=== PATIENT | female | born 1995 | race African-American/Black ===

== ENCOUNTER 2018-09-28 04:57 | Inpatient (IN) | payer SELFPAY ==
[2018-09-28] MEDS ORDERED: MINERAL OIL PO PRN (05:35)
[2018-09-28] MEDS ORDERED: BRETHINE IVP PRN (05:35)
[2018-09-28] MEDS ORDERED: XYLOCAINE 2% INFILTRATI ONE (05:35)
[2018-09-28] MEDS ORDERED: BRETHINE SUB-Q PRN (05:35)
[2018-09-28] MEDS ORDERED: STADOL IV PRN (05:35)
[2018-09-28] MEDS ORDERED: LACTATED RINGERS 1,000 ML ONE ×2 (05:40→19:41)
[2018-09-28] MEDS: LACTATED RINGERS 1,000 ML IV SCH ×4 (05:45→15:55)
[2018-09-28] MEDS ORDERED: PITOCin/NS 20 UNIT/1000ML DRIP 20 UNITS/1,000 ML BAG IV SCH ×3 (06:00→21:00)
[2018-09-28 06:35] LABS: Hematocrit 38.9 % (30.3-42.9); Hemoglobin 12.9 gm/dl (10.1-14.3); Mean Corpuscular HGB Conc 33 % (30-34); Mean Corpuscular Volume 86 fl (79-97); Platelet Count 256 K/mm3 (140-440); Red Blood Count 4.51 M/mm3 (3.65-5.03); Red Cell Distribution Width 25.5 % (13.2-15.2)
[2018-09-28] MEDS ORDERED: LACTATED RINGERS 1,000 ML IV SCH ×2 (10:00→20:00)
[2018-09-28] MEDS ORDERED: PITOCin/NS 30 UNIT/500ML 30 UNITS/500 ML BAG IV SCH (10:00)
[2018-09-28] MEDS: PITOCin/NS 30 UNIT/500ML 30 UNITS/500 ML BAG IV SCH ×4 (10:30→14:32)
--- NOTE | 2018-09-28 10:33 | History and Physical Report ---
History of Present Illness Date of examination: 09/28/18 Date of admission: 09/28/18 06:34 Chief complaint: My water broke History of present illness: 21 Fe MARY 10/06/2018, 38w6d, presents with SROM 09/28/18 at 03:50am. Pt has known Anemia taking FeS04. SHe had early care with [facility]. 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 denies: smoking, alcohol abuse, prescription drug abuse, IV drug use - Obstetrical History Expected Date of Delivery: 10/06/18 Actual Gestation: 38 Week(s) 6 Day(s) : 1 Para: 0 Hx # Term Pregnancies: 0 Number of Pregnancies: 0 Spontaneous Abortions: 0 Induced : 0 Number of Living Children: 0 Medications and Allergies Allergies Allergy/AdvReac Type Severity Reaction Status Date / Time No Known Allergies Allergy Verified 09/28/18 05:09 Home Medications Medication Instructions Recorded Confirmed Last Taken Type Cholecalciferol (Vitamin D3) 09/28/18 09/27/18 History [Vitamin D3] Ferrous Sulfate [Iron] 1 tab PO BID 09/28/18 09/28/18 09/27/18 History Active Meds: Active Medications Butorphanol Tartrate (Stadol) 2 mg IV Q2H PRN PRN Reason: Pain , Severe (7-10) Ephedrine Sulfate (Ephedrine Sulfate) 10 mg IV Q2M PRN PRN Reason: Hypotension Lactated Ringer's (Lactated Ringers) 1,000 mls @ 125 mls/hr IV DIRECT CUONG Last Admin: 09/28/18 07:52 Dose: 125 mls/hr Documented by: Oxytocin/Sodium Chloride (Pitocin/Ns 20 Unit/1000ml Drip) 20 units in 1,000 mls @ 125 mls/hr IV DIRECT CUONG Lactated Ringer's (Lactated Ringers) 1,000 mls @ 125 mls/hr IV DIRECT CUONG Oxytocin/Sodium Chloride (Pitocin/Ns 30 Unit/500ml) 30 units in 500 mls @ 2 mls/hr IV TITR CUONG; Protocol Oxytocin/Sodium Chloride (Pitocin/Ns 30 Unit/500ml) 30 units in 500 mls @ 2 mls/hr IV TITR CUONG; Protocol Mineral Oil (Mineral Oil) 30 ml PO QHS PRN PRN Reason: Constipation Terbutaline Sulfate (Brethine) 0.25 mg SUB-Q ONCE PRN PRN Reason: Hyperstimulation/Hypertonicity Terbutaline Sulfate (Brethine) 0.25 mg IVP ONCE PRN PRN Reason: Hyperstimulation/Hypertonicity Review of Systems All systems: negative - Vital Signs Vital signs: Vital Signs Temp Pulse Resp BP 98.4 F 104 H 18 122/75 09/28/18 05:10 09/28/18 05:10 09/28/18 05:10 09/28/18 05:10 Temp Pulse Resp BP Pulse Ox 98.6 F 72 22 138/79 98 09/28/18 07:44 09/28/18 07:44 09/28/18 07:44 09/28/18 07:44 09/28/18 07:44 - Physical Exam Breasts: Positive: normal Cardiovascular: Regular rate, Normal S1, Normal S2, No murmurs Lungs: Positive: Clear to auscultation, Normal air movement Abdomen: Positive: normal appearance, soft, normal bowel sounds. Negative: distention Genitourinary (Female): Positive: normal external genitalia, normal perenium Vagina: Negative: normal moisture (Moderate amt clear fluid noted leaking from vagina) Uterus: Positive: enlarged (gravid) Anus/Rectum: Positive: normal perianal skin Extremities: Positive: normal Deep Tendon Reflex Grade: Normal +2 - Obstetrical FHR: auscultation normal, category 1 Uterine Contraction Monitor Mode: External Cervical Dilatation: 0 Cervical Effacement Percentage: 75 station: -3 Uterine Contraction Frequency (min): irreg Uterine Contraction Pattern: Irregular Uterine Tone Measurement Phase: Resting Uterine Contraction Intensity: Mild Results Result Diagrams: 09/28/18 05:45 Abnormal lab results 09/28/18 Range/Units 05:45 RDW 25.5 H (13.2-15.2) % All other labs normal. Assessment and Plan A: IUP @ 38w6d SROM 09/28/18 @ 03:50 am; lg amt clear GBS unknown Category 1 tracing Asymptomatic Anemia; FeS04 P: Admit to L&D Routine labor orders GBS prophylaxis Pitocin augmentation
--- NOTE | 2018-09-28 14:07 | Ultrasound Report ---
ULTRASOUND OB LIMITED History: Evaluate presentation Technique: Transabdominal ultrasound with Doppler interrogation. Gestation: Single Position: Cephalic Heart Rate: 141 BPM
--- NOTE | 2018-09-28 18:43 | Event Note ---
Date: 09/28/18 Assumed care of patient. Patient states she had SROM with clear fluid this AM and is receiving Pitocin for augmentation of labor. FHR tracing showed FHR baseline 125 with minimal variability and early and late decelerations. Positioned patient in left lateral position. IV fluid bolus given. Pitocin turned off. Oxygen applied per face mask at 10 LPM. FHR has responded well to interventions. Now FHR baseline 125 with moderate variability and accelerations.
[2018-09-28] MEDS ORDERED: BICITRA PO ONE (19:12)
[2018-09-28] MEDS ORDERED: PEPCID IV ONE (19:12)
[2018-09-28] MEDS ORDERED: REGLAN IV ONE (19:12)
--- NOTE | 2018-09-28 19:17 | Event Note ---
Date: 09/28/18 Prolonged FHR deceleration noted with gradual return to baseline. Notified Dr. Whitley of prolonged FHR deceleration and earlier period of late FHR decelerations which had previously resolved. Dr. Whitley states to get patient ready for section. Informed patient and of recommendation for section due to nonreassuring heart rate tracing. C/S orders put in.
[2018-09-28] MEDS ORDERED: ASTRAMORPH PF 10MG/10ML ONE (19:37)
[2018-09-28] MEDS ORDERED: NEO SYNEPHRINE/NS Syringe(OR USE) IV ONE (19:37)
[2018-09-28] MEDS ORDERED: ZOFRAN ONE (19:37)
[2018-09-28] MEDS ORDERED: ANCEF/STERILE WATER 2 GM/20 ML 2 GM/20 ML SYRINGE IV NR (20:00)
[2018-09-28] MEDS ORDERED: WATER FOR IRRIG STERILE IR ONE (20:03)
[2018-09-28] MEDS ORDERED: NACL 0.9% IR ONE (20:03)
[2018-09-28] MEDS ORDERED: TORADOL ONE (20:19)
--- NOTE | 2018-09-28 20:36 | Operative Report ---
Operative Report Operative Report: Date of procedure: 09/28/2018 Pre-operative diagnosis: 1. Intrauterine at 38-6/7 weeks 2. Non-r eassuring surveillance Post-operative diagnosis: Same Procedure name(s): Primary low transverse section Surgeon: Juancho Whitley MD Cookie Mixer Helper: None Anesthesia: Spinal anesthesia by Dr. Lassiter EBL: 200 mL's Findings: A 2510 g female infant Apgars 8 at 1 minute 9 at 5 minutes. Clear amniotic fluid. Normal uterus. Normal tubes and ovaries bilaterally. Procedure: After the patient was prepped and draped in usual sterile fashion, and after satisfactory level of epidural anesthesia was obtained, the skin knife was used to make a transverse skin incision. The incision was excised down to layer of the fascia, which was nicked in the midline and extended laterally using the Bovie cautery. The rectus muscles were dissected off the rectus fascia both superiorly and inferiorly. The rectus bellies in the midline, and the peritoneum was entered under direct visualization. The peritoneal incision was extended superiorly and inferiorly. A bladder flap was created and the bladder blade was then placed. The uterus was scored in a curvilinear linear fashion, entered in the midline revealing clear amniotic fluid. The 's head was delivered onto the surgical field, and the oropharynx and nasopharynx were bulb suctioned. The rest of the 's body was delivered, cord was doubly clamped and cut and the was handed to the waiting respiratory team. Cord blood was then obtained. The placenta was manually removed from the uterus, and the uterus removed from its normal anatomical position. After gentle uterine lavage, the incision was inspected and found to be without extensions. It was then closed in 2 layers using 0 Vicryl suture in a running interlocking fashion, the second layer imbricating the first. After good hemostasis was achieved, copious amounts or irrigation was performed, and the gutters were suctioned free of blood and blood clots. Tisseel sealant was sprayed across the uterine incision. The uterus was then returned to its normal anatomical position, and after excellent hemostasis assured, the peritoneum was re-approximated using 3-0 Vicryl suture in a running interlocking fashion, and then the rectus muscles were re-approximated using 3-0 Vicryl suture in a [id number] configuration. The fascia was then re- approximated using 0 Vicryl suture in running interlocking fashion. The subcutaneous layer was made hemostatic using Bovie cautery, the Tisseel sealant was sprayed across the fascial incision and the skin edges re-approximated using 4-0 Vicryl suture in a sub-cuticular fashion. Patient tolerated the procedure well was transported to recovery in stable condition.
[2018-09-28] MEDS ORDERED: SENOKOT PO PRN (20:37)
[2018-09-28] MEDS ORDERED: ZOFRAN IV PRN ×2 (20:37→20:43)
[2018-09-28] MEDS ORDERED: MILK OF MAGNESIA PO PRN (20:37)
[2018-09-28] MEDS ORDERED: NORCO 5/325 PO PRN (20:37)
[2018-09-28] MEDS ORDERED: PHENERGAN PR PRN ×2 (20:37→20:43)
[2018-09-28] MEDS ORDERED: NARCAN 0.4 MG/1 ML IV PRN ×2 (20:37→20:43)
[2018-09-28] MEDS ORDERED: LANSINOH TP PRN (20:37)
[2018-09-28] MEDS ORDERED: TORADOL IV PRN (20:37)
[2018-09-28] MEDS ORDERED: TYLENOL PO PRN (20:37)
[2018-09-28] MEDS ORDERED: TUCKS PAD TP PRN (20:37)
[2018-09-28] MEDS ORDERED: MYLICON PO PRN (20:37)
[2018-09-28] MEDS ORDERED: PHENERGAN PO PRN (20:43)
[2018-09-28] MEDS ORDERED: DILAUDID IV PRN (20:43)
--- NOTE | 2018-09-28 20:45 | Anesthesia Day of Surgery ---
Anesthesia Day of Surgery - Day of Surgery Patient Examined: Yes Patient H&P Reviewed: Yes Patient is NPO: Yes Beta Blockers: No Cardiac Clearance: No Pulmonary Clearance: No Enrique's Test: N/A
--- NOTE | 2018-09-28 20:45 | Anesthesia Consultation ---
Anesthesia Consult and Med Hx - Airway Anesthetic Teeth Evaluation: Good ROM Head & Neck: Adequate Mental/Hyoid Distance: Adequate Mallampati Class: Class I Intubation Access Assessment: Good - Pulmonary Exam CTA: Yes - Cardiac Exam Cardiac Exam: RRR - Pre-Operative Health Status ASA Pre-Surgery Classification: ASA2 Proposed Anesthetic Plan: Spinal - Pulmonary Hx Smoking: No Hx Asthma: No COPD: No Hx Pneumonia: No - Cardiovascular System Hx Hypertension: No - Central Nervous System Hx Seizures: No Hx Psychiatric Problems: No - Endocrine Hx Renal Disease: No Hx End Stage Renal Disease: No Hx Hypothyroidism: No Hx Hyperthyroidism: No - Hematic Hx Anemia: Yes (iron bid) Hx Sickle Cell Disease: No - Other Systems Hx Alcohol Use: No
--- NOTE | 2018-09-28 20:46 | Post Anesthesia Evaluation ---
- Post Anesthesia Evaluation Patient Participated: Yes Airway Patent: Yes Stable Respiratory Function: Yes Nausea/Vomiting: No Temp > 96.8F: Yes Pain Manageable: Yes Adequeate Hydration: Yes Anesthesia Complications: No Block Receding Appropriately: Yes Patient on Ventilator: No
[2018-09-28] MEDS ORDERED: SODIUM CHLORIDE FLUSH SYRINGE 10 ML IV SCH ×2 (21:00)
[2018-09-29] MEDS: D5LR 1,000 ML IV SCH ×2 (01:15→12:11)
[2018-09-29] MEDS: ANCEF/NS 1 GM/50 ML 1 GM/50 ML BAG IV SCH ×2 (05:51→12:10)
[2018-09-29] MEDS ORDERED: BOOSTRIX IM ONE (06:00)
[2018-09-29 09:31] LABS: Hematocrit 34.5 % (30.3-42.9); Hemoglobin 11.5 gm/dl (10.1-14.3)
[2018-09-29] MEDS: FEOSOL PO SCH (10:52)
[2018-09-29] MEDS: PRENATAL VITAMIN PO SCH (10:52)
--- NOTE | 2018-09-29 11:16 | Progress Note ---
Assessment and Plan A: /postop day 1 S/P primary low transverse section. P: Encouraged ambulation. Subjective - Subjective Date of service: 09/29/18 Principal diagnosis: /postop day 1 S/P low transverse section Interval history: /postop day 1 S/P primary low transverse section. Doing well. Patient reports small amount of lochia. Magallanes catheter has been removed and patient is voiding without difficulty. Tolerating a regular diet without nausea or vomiting. Passing gas. Ambulating well. Patient reports: appetite normal, voiding normally, pain well controlled, flatus, ambulating normally, no dizzy ambulation, no nauseated [place]: doing well Objective - Vital Signs Latest vital signs: Vital Signs Temp Pulse Resp BP BP Pulse Ox 09/29/18 08:02 98.8 F 82 21 107/49 97 09/29/18 05:20 98.6 F 90 16 100/50 96 09/28/18 22:42 99.0 F 100 H 16 113/60 99 09/28/18 21:41 49 L 12 102/60 100 09/28/18 21:26 85 14 110/50 100 09/28/18 21:11 91 H 14 96/50 100 09/28/18 20:56 90 15 107/55 100 09/28/18 20:51 89 16 102/56 100 09/28/18 20:46 101 H 15 101/53 100 09/28/18 20:41 98.2 F 99 H 19 107/44 100 09/28/18 19:12 101 H 100 09/28/18 19:05 97.8 F 105/58 09/28/18 14:35 80 105/58 09/28/18 14:34 97.4 F L 80 105/58 09/28/18 11:25 99.5 F 86 15 127/68 09/28/18 11:24 86 127/68 Intake and Output 09/28/18 09/29/18 09/29/18 23:59 07:59 15:59 Intake Total 1200 240 Output Total 900 1100 1700 Balance 300 -1100 -1460 Intake: IV 1200 Oral 240 Output: Urine 900 1100 1700 Indwelling Catheter 1100 1700 Other: Total, Intake Amount 240 Total, Output Amount 400 1700 Estimated Blood Loss 200 - Exam Cardiovascular: Present: Regular rate, Normal S1, Normal S2 Lungs: Present: Clear to auscultation Abdomen: Present: normal appearance, soft, normal bowel sounds. Absent: distention, tenderness, guarding, rigidity Uterus: Present: normal, firm, fundal height below umbilicus. Absent: bogginess, tenderness Extremities: Present: normal. Absent: tenderness, edema Incision: Present: normal, dry, intact, dressed
[2018-09-29] MEDS: PERCOCET 5/325 PO PRN (12:09)
[2018-09-29] MEDS ORDERED: BENADRYL PO PRN (12:45)
[2018-09-29] MEDS ORDERED: M-M-R II VACCINE SUB-Q ONE (20:38)
[2018-09-30] MEDS: IBUPROFEN PO PRN ×2 (06:53→17:53)
[2018-09-30] MEDS: PERCOCET 5/325 PO PRN (06:53)
[2018-09-30] MEDS: PRENATAL VITAMIN PO SCH (10:32)
[2018-09-30] MEDS: FEOSOL PO SCH (10:32)
--- NOTE | 2018-09-30 11:25 | Progress Note ---
Assessment and Plan A: /postop day 2 S/P primary low transverse section. P: Continue current orders. Anticipate discharge tomorrow. Subjective - Subjective Date of service: 09/30/18 Principal diagnosis: /postop day 2 S/P low transverse section Interval history: /postop day 2 S/P primary low transverse section. Doing well. Patient reports scant amount of lochia. Patient is voiding without difficulty and ambulating well. Passing gas. Tolerating a regular diet without nausea or vomiting. Patient denies headache, chest pain, cough, shortness of breath, abdominal pain, leg pain, heavy vaginal bleeding, or any other problems. Patient reports: appetite normal, voiding normally, pain well controlled, ambulating normally, no dizzy ambulation, no nauseated [place]: doing well Objective - Vital Signs Latest vital signs: Vital Signs Temp Pulse Resp BP Pulse Ox 09/30/18 08:27 97.6 F 69 18 105/60 99 09/30/18 00:25 98.7 F 95 H 16 108/65 97 09/29/18 21:25 98.2 F 110 H 18 113/76 100 09/29/18 16:34 98.9 F 100 H 20 109/64 99 09/29/18 11:24 98.0 F 98 H 20 110/72 97 Intake and Output 09/29/18 09/30/18 09/30/18 23:59 07:59 15:59 Intake Total 480 120 Output Total 1200 Balance -720 120 Intake: Oral 480 Intake, Free Water 120 Output: Urine 1200 Void 1200 Other: Total, Intake Amount 480 Total, Output Amount 800 # Voids Void 2 - Exam Cardiovascular: Present: Regular rate, Normal S1, Normal S2, No murmurs Lungs: Present: Clear to auscultation Abdomen: Present: normal appearance, soft, normal bowel sounds. Absent: distention, tenderness, guarding, rigidity Uterus: Present: normal, firm, fundal height below umbilicus. Absent: bogginess, tenderness Extremities: Present: normal. Absent: tenderness, edema Incision: Present: normal, dry, intact
[2018-10-01] MEDS: IBUPROFEN PO PRN ×2 (04:27→11:25)
[2018-10-01] MEDS: PERCOCET 5/325 PO PRN (04:29)
--- NOTE | 2018-10-01 07:09 | Progress Note ---
Assessment and Plan A: /postop day 3 S/P primary low transverse section. P: Discharge patient home today. Discussed with patient discharge instructions and warning signs. Activity restrictions and care of incision discussed with patient. Advised patient to avoid intercourse, lifting and heavy housework, driving, stair climbing, and tub baths (may take showers). Advised patient to call [facility] and schedule a follow up appointment for 1 week for an incision check. Patient voiced understanding of all instructions. Rx have been left on chart for patient by MD. Subjective - Subjective Date of service: 10/01/18 Principal diagnosis: /postop day 3 S/P low transverse section Interval history: /postop day 3 S/P primary low transverse section. Doing well. Patient reports scant amount of lochia. Patient is voiding without difficulty and ambulating well. Passing gas. Tolerating a regular diet without nausea or vomiting. Patient denies headache, chest pain, cough, shortness of breath, dizziness, abdominal pain, leg pain, heavy vaginal bleeding, or any other problems. Patient reports: appetite normal, voiding normally, pain well controlled, flatus, ambulating normally, no dizzy ambulation, no nauseated [place]: doing well Objective - Vital Signs Latest vital signs: Vital Signs Temp Pulse Resp BP Pulse Ox 10/01/18 00:21 98.0 F 73 18 104/60 98 09/30/18 16:57 98.9 F 96 H 18 118/76 98 09/30/18 08:27 97.6 F 69 18 105/60 99 Intake and Output 09/30/18 09/30/18 10/01/18 15:59 23:59 07:59 Intake Total 960 480 Balance 960 480 Intake: Oral 360 480 Intake, Free Water 600 Other: Total, Intake Amount 360 480 # Voids Void 1 1 - Exam Cardiovascular: Present: Regular rate, Normal S1, Normal S2, No murmurs Lungs: Present: Clear to auscultation Abdomen: Present: normal appearance, soft, normal bowel sounds. Absent: distention, tenderness, guarding, rigidity Uterus: Present: normal, firm, fundal height below umbilicus. Absent: bogginess, tenderness Extremities: Present: normal. Absent: tenderness, edema Incision: Present: normal, dry, intact
--- NOTE | 2018-10-01 07:11 | Discharge Summary ---
Providers - Providers Date of Admission: 09/28/18 06:34 Date of discharge: 10/01/18 Attending physician: HELADIO HOFFMANN MD None Primary care physician: HELADIO HOFFMANN MD Hospitalization Reason for admission: rupture of membranes Delivery: Procedure: primary low transverse Incision: normal, dry, intact Other procedures: none complications: none Discharge diagnosis: IUP at term delivered [place] baby: female Pertinent studies: Labs Hospital course: Normal hospital course Condition at discharge: Good Disposition: SC-01 TO HOME OR SELFCARE - Discharge Diagnoses (1) Term delivered Status: Acute Plan - Discharge Medications Prescriptions: Ferrous Sulfate [Feosol 325 MG tab] 325 mg PO BID #60 tablet HYDROcodone/APAP 5-325 [[place] 5/325] 1 each PO Q6HR PRN #30 tablet PRN Reason: Pain Ibuprofen [Motrin] 800 mg PO Q8HR PRN #30 tablet PRN Reason: Moder Pain Unrelieved By [place] Pnv No.95/Ferrous Fum/Folic AC [Prenavite Tablet] 1 each PO DAILY #30 tablet - Provider Discharge Summary Activity: routine, no sex for 6 weeks, no heavy lifting 4 weeks, no strenuous exercise Diet: routine Instructions: routine Additional instructions: Call your doctor immediately for: * Fever > 100.5 * Heavy vaginal bleeding ( >1 pad per hour) * Severe persistent headache * Shortness of breath * Reddened, hot, painful area to leg or breast * Drainage or odor from incision. * Keep incision clean and dry at all times and follow doctor's instructions regarding bathing/showering - Follow up plan Follow up: HELADIO HOFFMANN MD [Primary Care Provider] - 7 Days
[2018-10-01] MEDS: FEOSOL PO SCH (10:24)
[2018-10-01] MEDS: PRENATAL VITAMIN PO SCH (10:24)
[2018-10-01 12:45] VITALS: BP 113/78
== END 2018-10-01 12:30 | disposition home or self-care (01) | DRG 788 ==
LOC: TRG 04:57 → LD 06:34 → TRG 06:34 → APU 21:05 → OB 22:08
PROVIDERS: ADMIT Obstetrics & Gynecology; ATTEND Obstetrics & Gynecology
PROC: 10D00Z1 Extraction of Products of Conception, Low, Open Approach (ICD-10-PCS; principal; 2018-09-28)
PROC: 3E0234Z Introduction of Serum, Toxoid and Vaccine into Muscle, Percutaneous Approach (ICD-10-PCS; 2018-09-29)
DX: O76 Abnormality in fetal heart rate and rhythm complicating labor and delivery (principal); O99.02 Anemia complicating childbirth; D64.9 Anemia, unspecified; Z3A.38 38 weeks gestation of pregnancy; Z37.0 Single live birth; Z23 Encounter for immunization
CPT/HCPCS: 36415; 76815; 85014; 85018; 85027; 86592; 86850; 86900; 86901; G0378; C9250; J0595; J0690; J1885; J2274; J2370; J2405; J2590; J2765; J3105; J7120; J7121

== ENCOUNTER 2021-11-13 20:22 | Inpatient (IN) | payer OTHER ==
[2021-11-13] MEDS ORDERED: OXYTOCIN 10 UNIT/1 ML INJ IM PRN (21:33)
[2021-11-13] MEDS ORDERED: BUTORPHANOL 2 MG/1 ML INJ IV PRN (21:33)
[2021-11-13] MEDS ORDERED: LOPERAMIDE 2 MG CAP PO PRN (21:33)
[2021-11-13] MEDS ORDERED: ACETAMINOPHEN 325 MG TAB PO PRN (21:33)
[2021-11-13] MEDS ORDERED: METHYLERGONOVINE MALEATE 0.2 MG/ML VIAL IM PRN (21:33)
[2021-11-13] MEDS ORDERED: ePHEDrine SULFATE 50 MG/1 ML INJ IV PRN (21:33)
[2021-11-13] MEDS ORDERED: LIDOCAINE (2%) 20 MG/1 ML VIAL 20 ML MDV INFILTRATI ONE (21:33)
[2021-11-13] MEDS ORDERED: miSOPROStol 200 MCG TAB PR PRN (21:33)
[2021-11-13] MEDS ORDERED: fentaNYL 100 MCG/2 ML INJ IV PRN (21:33)
[2021-11-13] MEDS ORDERED: CARBOPROST TROMETHAMINE 250 MCG/1 ML INJ IM PRN (21:33)
[2021-11-13] MEDS ORDERED: TERBUTALINE 1 MG/1 ML INJ SUB-Q PRN (21:33)
[2021-11-13] MEDS ORDERED: MINERAL OIL 30 ML ORAL LIQD PO PRN (21:33)
[2021-11-13] MEDS ORDERED: OXYTOCIN DRIP 30 UNITS/500 ML BAG IV SCH ×2 (22:00)
[2021-11-13 22:21] LABS: Hematocrit 32.6 % (30.3-42.9); Hemoglobin 11.1 gm/dl (10.1-14.3); Mean Corpuscular HGB Conc 34 % (30-34); Mean Corpuscular Volume 82 fl (79-97); Platelet Count 292 K/mm3 (140-440); Red Blood Count 3.97 M/mm3 (3.65-5.03); Red Cell Distribution Width 13.8 % (13.2-15.2)
[2021-11-13] MEDS ORDERED: AMPICILLIN/NS 2 GM/100 ML 2 GM/100 ML BAG IV ONE (22:33)
--- NOTE | 2021-11-13 23:03 | History and Physical Report ---
History of Present Illness Date of examination: 11/13/21 Date of admission: 11/13/21 21:33 Chief complaint: SROM Previous c/sectionx1, desires TOLAC History of present illness: 25-year-old -0-0-1 at 39-1/7 weeks presents with spontaneous rupture of membranes. Admits to good movement and is without vaginal bleeding. Admits to regular contractions Obstetrical history significant for previous section x1-documented low- transverse in [facility]. Patient desires TOLAC-informed consent was obtained. The normal care lifecycle: records in chart Past History Past Surgical History: section (Primary low transverse section documented in [facility] 2019) Family/Genetic History: none Social history: no significant social history - Obstetrical History Expected Date of Delivery: 11/19/21 Actual Gestation: 39 Week(s) 1 Day(s) : 2 Para: 1 Medications and Allergies Allergies Allergy/AdvReac Type Severity Reaction Status Date / Time No Known Allergies Allergy Verified 09/28/18 05:09 Home Medications Medication Instructions Recorded Confirmed Last Taken Type Cholecalciferol (Vitamin D3) 1 tab PO 1XW 09/28/18 09/29/18 09/27/18 History [Vitamin D3] Ferrous Sulfate [Feosol 325 MG tab] 325 mg PO BID #60 tablet 09/28/18 Unknown Rx Ferrous Sulfate [Iron] 1 tab PO BID 09/28/18 09/28/18 09/27/18 History HYDROcodone/APAP 5-325 [[place] 1 each PO Q6HR PRN #30 tablet 09/28/18 Unknown Rx 5/325] Ibuprofen [Motrin] 800 mg PO Q8HR PRN #30 tablet 09/28/18 Unknown Rx Pnv No.95/Ferrous Fum/Folic AC 1 each PO DAILY #30 tablet 09/28/18 Unknown Rx [Prenavite Tablet] Active Meds: Active Medications Acetaminophen (Acetaminophen 325 Mg Tab) 650 mg PO Q4H PRN PRN Reason: Pain, Mild (1-3) Butorphanol Tartrate (Butorphanol 2 Mg/1 Ml Inj) 1 mg IV Q2H PRN PRN Reason: Pain, Moderate(4-6) LABOR PAIN Carboprost Tromethamine (Carboprost Tromethamine 250 Mcg/1 Ml Inj) 250 mcg IM ONCE PRN PRN Reason: Uterine Bleeding Ephedrine Sulfate (Ephedrine Sulfate 50 Mg/1 Ml Inj) 10 mg IV Q2M PRN PRN Reason: Hypotension Fentanyl (Fentanyl 100 Mcg/2 Ml Inj) 100 mcg IV Q2H PRN PRN Reason: Pain,Severe (7-10) LABOR PAIN Oxytocin/Sodium Chloride (Pitocin/Ns 30 Unit/500ml) 30 units in 500 mls @ 2 mls/hr IV TITR CUONG; Protocol Lactated Ringer's (Lactated Ringers) 1,000 mls @ 125 mls/hr IV DIRECT CUONG Oxytocin/Sodium Chloride (Pitocin/Ns 30 Unit/500ml) 30 units in 500 mls @ 40 mls/hr IV TITR CUONG; Protocol Ampicillin Sodium (Ampicillin/Ns 2 Gm/100 Ml) 2 gm in 100 mls @ 100 mls/hr IV ONCE ONE; Protocol Stop: 11/13/21 23:32 Loperamide HCl (Loperamide 2 Mg Cap) 2 mg PO ONCE PRN PRN Reason: give with Hemabate Methylergonovine Maleate (Methylergonovine Maleate 0.2 Mg/Ml Vial) 0.2 mg IM ONCE PRN PRN Reason: Uterine Bleeding Mineral Oil (Mineral Oil 30 Ml Oral Liqd) 30 ml PO QHS PRN PRN Reason: Constipation Misoprostol (Misoprostol 200 Mcg Tab) 800 mcg MD ONCE PRN PRN Reason: Uterine Bleeding Oxytocin (Oxytocin 10 Unit/1 Ml Inj) 10 unit IM ONCE PRN PRN Reason: Uterine Bleeding Terbutaline Sulfate (Terbutaline 1 Mg/1 Ml Inj) 0.25 mg SUB-Q ONCE PRN PRN Reason: Hyperstimulation/Hypertonicity Review of Systems All systems: negative (Leaking fluid) - Vital Signs Vital signs: Vital Signs Pulse Pulse Ox 110 H 100 11/13/21 20:45 11/13/21 20:45 Temp Pulse Resp BP Pulse Ox 98.2 F 103 H 14 127/70 100 11/13/21 21:01 11/13/21 23:01 11/13/21 21:01 11/13/21 21:06 11/13/21 23:01 - Physical Exam Breasts: Positive: deferred Cardiovascular: Regular rate Lungs: Positive: Clear to auscultation Abdomen: Positive: normal appearance, soft, normal bowel sounds Genitourinary (Female): Positive: normal external genitalia, normal perenium Vagina: Positive: normal moisture Uterus: Positive: enlarged (Gravid) Adnexa: both: normal Anus/Rectum: Positive: normal perianal skin Extremities: Positive: normal Deep Tendon Reflex Grade: Normal +2 - Obstetrical FHR: category 1 Results Result Diagrams: 11/13/21 21:40 Abnormal lab results 11/13/21 Range/Units 21:40 WBC 11.7 H (4.5-11.0) K/mm3 All other labs normal. Assessment and Plan Admission Informed consent GBS coverage PRN CFM Epidural Low dose oxytocin Gordon Torres MD
[2021-11-14] MEDS ORDERED: diphenhydrAMINE 50 MG/ML VIAL IV PRN (00:27)
[2021-11-14] MEDS ORDERED: NALOXONE 2 MG/2 ML INJ IV PRN (00:27)
[2021-11-14] MEDS ORDERED: ePHEDrine SULFATE 50 MG/1 ML INJ IV PRN (00:27)
[2021-11-14] MEDS ORDERED: LACTATED RINGERS 250 ML IV SOLN IV ONE (00:27)
[2021-11-14] MEDS ORDERED: NalbUPHINE 10 MG/1 ML INJ IV PRN (00:27)
[2021-11-14] MEDS ORDERED: ONDANSETRON 4 MG/2 ML INJ IV PRN (00:27)
--- NOTE | 2021-11-14 00:54 | Anesthesia Consultation ---
Anesthesia Consult and Med Hx Date of service: 11/14/21 - Airway Anesthetic Teeth Evaluation: Good ROM Head & Neck: Adequate Mental/Hyoid Distance: Adequate Mallampati Class: Class II Intubation Access Assessment: Probably Good - Pulmonary Exam CTA: Yes - Cardiac Exam Cardiac Exam: RRR - Pre-Operative Health Status ASA Pre-Surgery Classification: ASA2 Proposed Anesthetic Plan: Epidural - Pulmonary Hx Smoking: No Hx Asthma: No COPD: No Hx Pneumonia: No Hx Sleep Apnea: No - Cardiovascular System Hx Hypertension: No Hx Heart Attack/AMI: No Hx Angina: No - Central Nervous System Hx Seizures: No Hx Psychiatric Problems: No - Gastrointestinal Hx Gastroesophageal Reflux Disease: No - Endocrine Hx Renal Disease: No Hx End Stage Renal Disease: No Hx Liver Disease: No Hx Insulin Dependent Diabetes: No Hx Non-Insulin Dependent Diabetes: No Hx Hypothyroidism: No Hx Hyperthyroidism: No - Hematic Hx Anemia: No Hx Sickle Cell Disease: No - Other Systems Hx Alcohol Use: No - Additional Comments Anesthesia Medical History Comments: previous c/s x1
--- NOTE | 2021-11-14 00:56 | Progress Note ---
Labor Epidural - Labor Epidural Start Time: 00:45 Stop Time: 00:55 Performed by:: JESSICA BEAVER Procedure: Patient is requesting epidural for labor and pain. H&P, labs were reviewed. Patient IDed, all questions and concerns were answered, and consent was signed. Timeout was performed at bedside. Patient in sitting position. Sterile prep and drape was performed. 3ml of 1% lidocaine skin wheal at L[3]- L [4]. 17- gauge Tuohy epidural needle was advanced to loss of resistance with air technique 5.5cm. Negative CSF negative blood. Epidural catheter advanced to [11] centimeters. [negative] Aspiration [negative] test dose. Sterile dressing applied. Patient tolerated procedure.
[2021-11-14] MEDS: LACTATED RINGERS 1,000 ML IV SCH ×2 (01:12→08:42)
[2021-11-14] MEDS: fentaNYL-BUPIV 2 MCG/ML-0.125% 200 MCG/100 ML BAG EPIDURAL SCH ×2 (01:22→08:42)
--- NOTE | 2021-11-14 08:57 | Progress Note ---
Subjective - Subjective Date of service: 11/14/21 Interval history: TOLAC On oxytocin Epidural in place FHT Category 1 [place] Hook: irregular cervix 1/90%/-3 CFM Maternal/ well being reassuring overall. Gordon Torres MD Objective - Vital Signs Vital Signs: Vital Signs - 12hr 11/13/21 11/13/21 11/13/21 20:54 20:55 20:56 Temperature Pulse Rate 104 H 107 H 109 H Respiratory Rate Blood Pressure 120/71 123/70 Blood Pressure [Right] O2 Sat by Pulse 100 Oximetry O2 Sat by Pulse Oximetry [ Bilateral Throughout] 11/13/21 11/13/21 11/13/21 20:58 21:00 21:01 Temperature 98.2 F Pulse Rate 101 H 97 H 102 H Respiratory 14 Rate Blood Pressure 102/70 Blood Pressure 127/70 [Right] O2 Sat by Pulse 100 100 Oximetry O2 Sat by Pulse Oximetry [ Bilateral Throughout] 11/13/21 11/13/21 11/13/21 21:02 21:04 21:05 Temperature Pulse Rate 112 H 100 H 103 H Respiratory Rate Blood Pressure 125/79 130/69 Blood Pressure [Right] O2 Sat by Pulse 99 Oximetry O2 Sat by Pulse Oximetry [ Bilateral Throughout] 11/13/21 11/13/21 11/13/21 21:06 21:10 21:15 Temperature Pulse Rate 98 H 103 H 100 H Respiratory Rate Blood Pressure 127/70 Blood Pressure [Right] O2 Sat by Pulse 100 100 Oximetry O2 Sat by Pulse Oximetry [ Bilateral Throughout] 11/13/21 11/13/21 11/13/21 21:18 21:20 21:25 Temperature Pulse Rate 101 H 99 H 98 H Respiratory Rate Blood Pressure Blood Pressure [Right] O2 Sat by Pulse 92 100 100 Oximetry O2 Sat by Pulse Oximetry [ Bilateral Throughout] 11/13/21 11/13/21 11/13/21 21:30 21:35 21:40 Temperature Pulse Rate 98 H 97 H 99 H Respiratory Rate Blood Pressure Blood Pressure [Right] O2 Sat by Pulse 100 100 100 Oximetry O2 Sat by Pulse Oximetry [ Bilateral Throughout] 11/13/21 11/13/21 11/13/21 21:45 21:50 21:55 Temperature Pulse Rate 105 H 110 H 97 H Respiratory Rate Blood Pressure Blood Pressure [Right] O2 Sat by Pulse 100 100 100 Oximetry O2 Sat by Pulse Oximetry [ Bilateral Throughout] 11/13/21 11/13/21 11/13/21 22:00 22:16 22:21 Temperature Pulse Rate 98 H 100 H 99 H Respiratory Rate Blood Pressure Blood Pressure [Right] O2 Sat by Pulse 100 100 100 Oximetry O2 Sat by Pulse Oximetry [ Bilateral Throughout] 11/13/21 11/13/21 11/13/21 22:26 22:31 22:36 Temperature Pulse Rate 94 H 91 H 94 H Respiratory Rate Blood Pressure Blood Pressure [Right] O2 Sat by Pulse 100 100 100 Oximetry O2 Sat by Pulse Oximetry [ Bilateral Throughout] 11/13/21 11/13/21 11/13/21 22:41 22:46 22:51 Temperature Pulse Rate 106 H 95 H 88 Respiratory Rate Blood Pressure Blood Pressure [Right] O2 Sat by Pulse 98 100 100 Oximetry O2 Sat by Pulse Oximetry [ Bilateral Throughout] 11/13/21 11/13/21 11/13/21 22:56 23:01 23:06 Temperature Pulse Rate 93 H 103 H 86 Respiratory Rate Blood Pressure Blood Pressure [Right] O2 Sat by Pulse 100 100 100 Oximetry O2 Sat by Pulse Oximetry [ Bilateral Throughout] 11/13/21 11/13/21 11/13/21 23:09 23:11 23:16 Temperature Pulse Rate 92 H 93 H Respiratory Rate Blood Pressure 112/70 Blood Pressure [Right] O2 Sat by Pulse 100 100 Oximetry O2 Sat by Pulse 100 Oximetry [ Bilateral Throughout] 11/13/21 11/14/21 11/14/21 23:24 00:37 00:42 Temperature Pulse Rate 89 99 H 98 H Respiratory Rate Blood Pressure 125/83 Blood Pressure [Right] O2 Sat by Pulse 86 100 Oximetry O2 Sat by Pulse Oximetry [ Bilateral Throughout] 11/14/21 11/14/21 11/14/21 00:47 00:48 00:52 Temperature Pulse Rate 109 H 113 H 92 H Respiratory Rate Blood Pressure 121/76 Blood Pressure [Right] O2 Sat by Pulse 100 100 Oximetry O2 Sat by Pulse Oximetry [ Bilateral Throughout] 11/14/21 11/14/21 11/14/21 00:53 00:57 00:58 Temperature Pulse Rate 84 86 96 H Respiratory Rate Blood Pressure 121/68 124/69 Blood Pressure [Right] O2 Sat by Pulse 100 Oximetry O2 Sat by Pulse Oximetry [ Bilateral Throughout] 11/14/21 11/14/21 11/14/21 01:02 01:03 01:07 Temperature Pulse Rate 89 93 H 85 Respiratory Rate Blood Pressure 124/65 Blood Pressure [Right] O2 Sat by Pulse 100 100 Oximetry O2 Sat by Pulse Oximetry [ Bilateral Throughout] 11/14/21 11/14/21 11/14/21 01:08 01:12 01:13 Temperature Pulse Rate 91 H 84 90 Respiratory Rate Blood Pressure 118/62 113/58 Blood Pressure [Right] O2 Sat by Pulse 100 Oximetry O2 Sat by Pulse Oximetry [ Bilateral Throughout] 11/14/21 11/14/21 11/14/21 01:17 01:19 01:22 Temperature Pulse Rate 89 84 87 Respiratory Rate Blood Pressure 102/55 Blood Pressure [Right] O2 Sat by Pulse 100 100 Oximetry O2 Sat by Pulse Oximetry [ Bilateral Throughout] 11/14/21 11/14/21 11/14/21 01:23 01:27 01:28 Temperature Pulse Rate 89 86 80 Respiratory Rate Blood Pressure 104/59 105/58 Blood Pressure [Right] O2 Sat by Pulse 100 Oximetry O2 Sat by Pulse Oximetry [ Bilateral Throughout] 11/14/21 11/14/21 11/14/21 01:32 01:33 01:37 Temperature Pulse Rate 85 88 95 H Respiratory Rate Blood Pressure 105/59 Blood Pressure [Right] O2 Sat by Pulse 99 100 Oximetry O2 Sat by Pulse Oximetry [ Bilateral Throughout] 11/14/21 11/14/21 11/14/21 01:38 01:42 01:47 Temperature Pulse Rate 84 89 82 Respiratory Rate Blood Pressure 115/63 Blood Pressure [Right] O2 Sat by Pulse 100 99 Oximetry O2 Sat by Pulse Oximetry [ Bilateral Throughout] 11/14/21 11/14/21 11/14/21 01:52 01:57 02:02 Temperature Pulse Rate 84 93 H 87 Respiratory Rate Blood Pressure Blood Pressure [Right] O2 Sat by Pulse 99 100 100 Oximetry O2 Sat by Pulse Oximetry [ Bilateral Throughout] 11/14/21 11/14/21 11/14/21 02:07 02:12 02:17 Temperature Pulse Rate 79 99 H 86 Respiratory Rate Blood Pressure Blood Pressure [Right] O2 Sat by Pulse 99 100 100 Oximetry O2 Sat by Pulse Oximetry [ Bilateral Throughout] 11/14/21 11/14/21 11/14/21 02:22 02:27 02:32 Temperature Pulse Rate 92 H 92 H 91 H Respiratory Rate Blood Pressure Blood Pressure [Right] O2 Sat by Pulse 99 99 100 Oximetry O2 Sat by Pulse Oximetry [ Bilateral Throughout] 11/14/21 11/14/21 11/14/21 02:37 02:39 02:42 Temperature Pulse Rate 96 H 89 97 H Respiratory Rate Blood Pressure 107/70 Blood Pressure [Right] O2 Sat by Pulse 100 99 Oximetry O2 Sat by Pulse Oximetry [ Bilateral Throughout] 11/14/21 11/14/21 11/14/21 02:47 02:52 02:57 Temperature Pulse Rate 92 H 89 98 H Respiratory Rate Blood Pressure Blood Pressure [Right] O2 Sat by Pulse 99 99 99 Oximetry O2 Sat by Pulse Oximetry [ Bilateral Throughout] 11/14/21 11/14/21 11/14/21 03:02 03:07 03:12 Temperature Pulse Rate 108 H 100 H 94 H Respiratory Rate Blood Pressure Blood Pressure [Right] O2 Sat by Pulse 100 100 100 Oximetry O2 Sat by Pulse Oximetry [ Bilateral Throughout] 11/14/21 11/14/21 11/14/21 03:19 03:24 03:29 Temperature Pulse Rate 98 H 81 83 Respiratory Rate Blood Pressure Blood Pressure [Right] O2 Sat by Pulse 100 99 98 Oximetry O2 Sat by Pulse Oximetry [ Bilateral Throughout] 11/14/21 11/14/21 11/14/21 03:34 03:39 03:44 Temperature Pulse Rate 85 93 H 92 H Respiratory Rate Blood Pressure Blood Pressure [Right] O2 Sat by Pulse 98 98 98 Oximetry O2 Sat by Pulse Oximetry [ Bilateral Throughout] 11/14/21 11/14/21 11/14/21 03:49 03:54 03:59 Temperature Pulse Rate 88 90 93 H Respiratory Rate Blood Pressure Blood Pressure [Right] O2 Sat by Pulse 98 98 99 Oximetry O2 Sat by Pulse Oximetry [ Bilateral Throughout] 11/14/21 11/14/21 11/14/21 04:01 04:04 04:09 Temperature Pulse Rate 86 89 102 H Respiratory Rate Blood Pressure 116/67 Blood Pressure [Right] O2 Sat by Pulse 99 98 Oximetry O2 Sat by Pulse Oximetry [ Bilateral Throughout] 11/14/21 11/14/21 11/14/21 04:14 04:19 04:24 Temperature Pulse Rate 95 H 75 74 Respiratory Rate Blood Pressure Blood Pressure [Right] O2 Sat by Pulse 98 98 98 Oximetry O2 Sat by Pulse Oximetry [ Bilateral Throughout] 11/14/21 11/14/21 11/14/21 04:29 04:34 04:39 Temperature Pulse Rate 88 91 H 73 Respiratory Rate Blood Pressure Blood Pressure [Right] O2 Sat by Pulse 97 97 98 Oximetry O2 Sat by Pulse Oximetry [ Bilateral Throughout] 11/14/21 11/14/21 11/14/21 04:41 04:44 04:49 Temperature Pulse Rate 68 83 75 Respiratory Rate Blood Pressure 89/51 Blood Pressure [Right] O2 Sat by Pulse 97 98 Oximetry O2 Sat by Pulse Oximetry [ Bilateral Throughout] 11/14/21 11/14/21 11/14/21 04:54 04:59 05:04 Temperature Pulse Rate 80 102 H 83 Respiratory Rate Blood Pressure Blood Pressure [Right] O2 Sat by Pulse 98 98 98 Oximetry O2 Sat by Pulse Oximetry [ Bilateral Throughout] 11/14/21 11/14/21 11/14/21 05:09 05:14 05:19 Temperature Pulse Rate 79 91 H 114 H Respiratory Rate Blood Pressure Blood Pressure [Right] O2 Sat by Pulse 99 98 98 Oximetry O2 Sat by Pulse Oximetry [ Bilateral Throughout] 11/14/21 11/14/21 11/14/21 05:24 05:29 05:34 Temperature Pulse Rate 85 78 80 Respiratory Rate Blood Pressure Blood Pressure [Right] O2 Sat by Pulse 98 98 97 Oximetry O2 Sat by Pulse Oximetry [ Bilateral Throughout] 11/14/21 11/14/21 11/14/21 05:39 05:41 05:44 Temperature Pulse Rate 74 89 78 Respiratory Rate Blood Pressure 92/50 Blood Pressure [Right] O2 Sat by Pulse 98 98 Oximetry O2 Sat by Pulse Oximetry [ Bilateral Throughout] 11/14/21 11/14/21 11/14/21 05:49 05:54 05:59 Temperature Pulse Rate 86 87 90 Respiratory Rate Blood Pressure Blood Pressure [Right] O2 Sat by Pulse 97 98 97 Oximetry O2 Sat by Pulse Oximetry [ Bilateral Throughout] 11/14/21 11/14/21 11/14/21 06:04 06:09 06:14 Temperature Pulse Rate 103 H 88 90 Respiratory Rate Blood Pressure Blood Pressure [Right] O2 Sat by Pulse 97 98 99 Oximetry O2 Sat by Pulse Oximetry [ Bilateral Throughout] 11/14/21 11/14/21 11/14/21 06:19 06:24 06:28 Temperature Pulse Rate 84 87 81 Respiratory Rate Blood Pressure 108/67 Blood Pressure [Right] O2 Sat by Pulse 99 99 Oximetry O2 Sat by Pulse Oximetry [ Bilateral Throughout] 11/14/21 11/14/21 11/14/21 06:29 06:34 06:39 Temperature Pulse Rate 98 H 79 78 Respiratory Rate Blood Pressure 107/65 Blood Pressure [Right] O2 Sat by Pulse 99 99 99 Oximetry O2 Sat by Pulse Oximetry [ Bilateral Throughout] 11/14/21 11/14/21 11/14/21 06:44 06:49 06:54 Temperature Pulse Rate 88 84 77 Respiratory Rate Blood Pressure Blood Pressure [Right] O2 Sat by Pulse 99 99 99 Oximetry O2 Sat by Pulse Oximetry [ Bilateral Throughout] 11/14/21 11/14/21 11/14/21 06:59 07:04 07:09 Temperature Pulse Rate 75 93 H 78 Respiratory Rate Blood Pressure Blood Pressure [Right] O2 Sat by Pulse 99 99 99 Oximetry O2 Sat by Pulse Oximetry [ Bilateral Throughout] 11/14/21 11/14/21 11/14/21 07:14 07:19 07:24 Temperature Pulse Rate 85 82 75 Respiratory Rate Blood Pressure Blood Pressure [Right] O2 Sat by Pulse 100 99 98 Oximetry O2 Sat by Pulse Oximetry [ Bilateral Throughout] 11/14/21 11/14/21 11/14/21 07:29 07:34 07:39 Temperature Pulse Rate 72 74 83 Respiratory Rate Blood Pressure Blood Pressure [Right] O2 Sat by Pulse 98 99 98 Oximetry O2 Sat by Pulse Oximetry [ Bilateral Throughout] 11/14/21 11/14/21 11/14/21 07:40 07:41 07:42 Temperature 97.5 F L Pulse Rate 77 83 96 H Respiratory 16 Rate Blood Pressure 115/63 112/69 Blood Pressure 112/69 [Right] O2 Sat by Pulse 99 Oximetry O2 Sat by Pulse Oximetry [ Bilateral Throughout] 11/14/21 11/14/21 11/14/21 07:44 07:49 07:53 Temperature Pulse Rate 79 83 Respiratory Rate Blood Pressure Blood Pressure [Right] O2 Sat by Pulse 99 100 Oximetry O2 Sat by Pulse 100 Oximetry [ Bilateral Throughout] 11/14/21 11/14/21 11/14/21 07:54 07:55 07:59 Temperature 98.7 F Pulse Rate 93 H 80 89 Respiratory 16 Rate Blood Pressure Blood Pressure 112/69 [Right] O2 Sat by Pulse 99 99 99 Oximetry O2 Sat by Pulse Oximetry [ Bilateral Throughout] 11/14/21 11/14/21 11/14/21 08:04 08:09 08:14 Temperature Pulse Rate 95 H 79 85 Respiratory Rate Blood Pressure Blood Pressure [Right] O2 Sat by Pulse 98 100 99 Oximetry O2 Sat by Pulse Oximetry [ Bilateral Throughout] 11/14/21 11/14/21 11/14/21 08:19 08:24 08:29 Temperature Pulse Rate 99 H 85 109 H Respiratory Rate Blood Pressure Blood Pressure [Right] O2 Sat by Pulse 99 99 98 Oximetry O2 Sat by Pulse Oximetry [ Bilateral Throughout] 11/14/21 11/14/21 11/14/21 08:34 08:39 08:44 Temperature Pulse Rate 87 85 83 Respiratory Rate Blood Pressure 126/68 Blood Pressure [Right] O2 Sat by Pulse 100 100 99 Oximetry O2 Sat by Pulse Oximetry [ Bilateral Throughout] 11/14/21 08:49 Temperature Pulse Rate 87 Respiratory Rate Blood Pressure Blood Pressure [Right] O2 Sat by Pulse 99 Oximetry O2 Sat by Pulse Oximetry [ Bilateral Throughout] - Labs Labs: Abnormal Labs 11/13/21 21:40 WBC 11.7 H Laboratory Results - last 24 hr 11/13/21 11/13/21 11/13/21 21:40 21:40 21:40 WBC 11.7 H RBC 3.97 Hgb 11.1 Hct 32.6 MCV 82 MCH 28 MCHC 34 RDW 13.8 Plt Count 292 Membranes Rupture TNR Syphilis IgG/IgM Ab Nonreactive Blood Type O POSITIVE Antibody Screen Negative
--- NOTE | 2021-11-14 09:02 | Progress Note ---
Subjective - Subjective Date of service: 11/14/21 Interval history: TOLAC 5/100%/-2 by my exam redose epidural CFM Maternal/ well being reassuring overall. Gordon Torres MD Objective - Vital Signs Vital Signs: Vital Signs - 12hr 11/13/21 11/13/21 11/13/21 21:02 21:04 21:05 Temperature Pulse Rate 112 H 100 H 103 H Respiratory Rate Blood Pressure 125/79 130/69 Blood Pressure [Right] O2 Sat by Pulse 99 Oximetry O2 Sat by Pulse Oximetry [ Bilateral Throughout] 11/13/21 11/13/21 11/13/21 21:06 21:10 21:15 Temperature Pulse Rate 98 H 103 H 100 H Respiratory Rate Blood Pressure 127/70 Blood Pressure [Right] O2 Sat by Pulse 100 100 Oximetry O2 Sat by Pulse Oximetry [ Bilateral Throughout] 11/13/21 11/13/21 11/13/21 21:18 21:20 21:25 Temperature Pulse Rate 101 H 99 H 98 H Respiratory Rate Blood Pressure Blood Pressure [Right] O2 Sat by Pulse 92 100 100 Oximetry O2 Sat by Pulse Oximetry [ Bilateral Throughout] 11/13/21 11/13/21 11/13/21 21:30 21:35 21:40 Temperature Pulse Rate 98 H 97 H 99 H Respiratory Rate Blood Pressure Blood Pressure [Right] O2 Sat by Pulse 100 100 100 Oximetry O2 Sat by Pulse Oximetry [ Bilateral Throughout] 11/13/21 11/13/21 11/13/21 21:45 21:50 21:55 Temperature Pulse Rate 105 H 110 H 97 H Respiratory Rate Blood Pressure Blood Pressure [Right] O2 Sat by Pulse 100 100 100 Oximetry O2 Sat by Pulse Oximetry [ Bilateral Throughout] 11/13/21 11/13/21 11/13/21 22:00 22:16 22:21 Temperature Pulse Rate 98 H 100 H 99 H Respiratory Rate Blood Pressure Blood Pressure [Right] O2 Sat by Pulse 100 100 100 Oximetry O2 Sat by Pulse Oximetry [ Bilateral Throughout] 11/13/21 11/13/21 11/13/21 22:26 22:31 22:36 Temperature Pulse Rate 94 H 91 H 94 H Respiratory Rate Blood Pressure Blood Pressure [Right] O2 Sat by Pulse 100 100 100 Oximetry O2 Sat by Pulse Oximetry [ Bilateral Throughout] 11/13/21 11/13/21 11/13/21 22:41 22:46 22:51 Temperature Pulse Rate 106 H 95 H 88 Respiratory Rate Blood Pressure Blood Pressure [Right] O2 Sat by Pulse 98 100 100 Oximetry O2 Sat by Pulse Oximetry [ Bilateral Throughout] 11/13/21 11/13/21 11/13/21 22:56 23:01 23:06 Temperature Pulse Rate 93 H 103 H 86 Respiratory Rate Blood Pressure Blood Pressure [Right] O2 Sat by Pulse 100 100 100 Oximetry O2 Sat by Pulse Oximetry [ Bilateral Throughout] 11/13/21 11/13/21 11/13/21 23:09 23:11 23:16 Temperature Pulse Rate 92 H 93 H Respiratory Rate Blood Pressure 112/70 Blood Pressure [Right] O2 Sat by Pulse 100 100 Oximetry O2 Sat by Pulse 100 Oximetry [ Bilateral Throughout] 11/13/21 11/14/21 11/14/21 23:24 00:37 00:42 Temperature Pulse Rate 89 99 H 98 H Respiratory Rate Blood Pressure 125/83 Blood Pressure [Right] O2 Sat by Pulse 86 100 Oximetry O2 Sat by Pulse Oximetry [ Bilateral Throughout] 11/14/21 11/14/21 11/14/21 00:47 00:48 00:52 Temperature Pulse Rate 109 H 113 H 92 H Respiratory Rate Blood Pressure 121/76 Blood Pressure [Right] O2 Sat by Pulse 100 100 Oximetry O2 Sat by Pulse Oximetry [ Bilateral Throughout] 11/14/21 11/14/21 11/14/21 00:53 00:57 00:58 Temperature Pulse Rate 84 86 96 H Respiratory Rate Blood Pressure 121/68 124/69 Blood Pressure [Right] O2 Sat by Pulse 100 Oximetry O2 Sat by Pulse Oximetry [ Bilateral Throughout] 11/14/21 11/14/21 11/14/21 01:02 01:03 01:07 Temperature Pulse Rate 89 93 H 85 Respiratory Rate Blood Pressure 124/65 Blood Pressure [Right] O2 Sat by Pulse 100 100 Oximetry O2 Sat by Pulse Oximetry [ Bilateral Throughout] 11/14/21 11/14/21 11/14/21 01:08 01:12 01:13 Temperature Pulse Rate 91 H 84 90 Respiratory Rate Blood Pressure 118/62 113/58 Blood Pressure [Right] O2 Sat by Pulse 100 Oximetry O2 Sat by Pulse Oximetry [ Bilateral Throughout] 11/14/21 11/14/21 11/14/21 01:17 01:19 01:22 Temperature Pulse Rate 89 84 87 Respiratory Rate Blood Pressure 102/55 Blood Pressure [Right] O2 Sat by Pulse 100 100 Oximetry O2 Sat by Pulse Oximetry [ Bilateral Throughout] 11/14/21 11/14/21 11/14/21 01:23 01:27 01:28 Temperature Pulse Rate 89 86 80 Respiratory Rate Blood Pressure 104/59 105/58 Blood Pressure [Right] O2 Sat by Pulse 100 Oximetry O2 Sat by Pulse Oximetry [ Bilateral Throughout] 11/14/21 11/14/21 11/14/21 01:32 01:33 01:37 Temperature Pulse Rate 85 88 95 H Respiratory Rate Blood Pressure 105/59 Blood Pressure [Right] O2 Sat by Pulse 99 100 Oximetry O2 Sat by Pulse Oximetry [ Bilateral Throughout] 11/14/21 11/14/21 11/14/21 01:38 01:42 01:47 Temperature Pulse Rate 84 89 82 Respiratory Rate Blood Pressure 115/63 Blood Pressure [Right] O2 Sat by Pulse 100 99 Oximetry O2 Sat by Pulse Oximetry [ Bilateral Throughout] 11/14/21 11/14/21 11/14/21 01:52 01:57 02:02 Temperature Pulse Rate 84 93 H 87 Respiratory Rate Blood Pressure Blood Pressure [Right] O2 Sat by Pulse 99 100 100 Oximetry O2 Sat by Pulse Oximetry [ Bilateral Throughout] 11/14/21 11/14/21 11/14/21 02:07 02:12 02:17 Temperature Pulse Rate 79 99 H 86 Respiratory Rate Blood Pressure Blood Pressure [Right] O2 Sat by Pulse 99 100 100 Oximetry O2 Sat by Pulse Oximetry [ Bilateral Throughout] 11/14/21 11/14/21 11/14/21 02:22 02:27 02:32 Temperature Pulse Rate 92 H 92 H 91 H Respiratory Rate Blood Pressure Blood Pressure [Right] O2 Sat by Pulse 99 99 100 Oximetry O2 Sat by Pulse Oximetry [ Bilateral Throughout] 11/14/21 11/14/21 11/14/21 02:37 02:39 02:42 Temperature Pulse Rate 96 H 89 97 H Respiratory Rate Blood Pressure 107/70 Blood Pressure [Right] O2 Sat by Pulse 100 99 Oximetry O2 Sat by Pulse Oximetry [ Bilateral Throughout] 11/14/21 11/14/21 11/14/21 02:47 02:52 02:57 Temperature Pulse Rate 92 H 89 98 H Respiratory Rate Blood Pressure Blood Pressure [Right] O2 Sat by Pulse 99 99 99 Oximetry O2 Sat by Pulse Oximetry [ Bilateral Throughout] 11/14/21 11/14/21 11/14/21 03:02 03:07 03:12 Temperature Pulse Rate 108 H 100 H 94 H Respiratory Rate Blood Pressure Blood Pressure [Right] O2 Sat by Pulse 100 100 100 Oximetry O2 Sat by Pulse Oximetry [ Bilateral Throughout] 11/14/21 11/14/21 11/14/21 03:19 03:24 03:29 Temperature Pulse Rate 98 H 81 83 Respiratory Rate Blood Pressure Blood Pressure [Right] O2 Sat by Pulse 100 99 98 Oximetry O2 Sat by Pulse Oximetry [ Bilateral Throughout] 11/14/21 11/14/21 11/14/21 03:34 03:39 03:44 Temperature Pulse Rate 85 93 H 92 H Respiratory Rate Blood Pressure Blood Pressure [Right] O2 Sat by Pulse 98 98 98 Oximetry O2 Sat by Pulse Oximetry [ Bilateral Throughout] 11/14/21 11/14/21 11/14/21 03:49 03:54 03:59 Temperature Pulse Rate 88 90 93 H Respiratory Rate Blood Pressure Blood Pressure [Right] O2 Sat by Pulse 98 98 99 Oximetry O2 Sat by Pulse Oximetry [ Bilateral Throughout] 11/14/21 11/14/21 11/14/21 04:01 04:04 04:09 Temperature Pulse Rate 86 89 102 H Respiratory Rate Blood Pressure 116/67 Blood Pressure [Right] O2 Sat by Pulse 99 98 Oximetry O2 Sat by Pulse Oximetry [ Bilateral Throughout] 11/14/21 11/14/21 11/14/21 04:14 04:19 04:24 Temperature Pulse Rate 95 H 75 74 Respiratory Rate Blood Pressure Blood Pressure [Right] O2 Sat by Pulse 98 98 98 Oximetry O2 Sat by Pulse Oximetry [ Bilateral Throughout] 11/14/21 11/14/21 11/14/21 04:29 04:34 04:39 Temperature Pulse Rate 88 91 H 73 Respiratory Rate Blood Pressure Blood Pressure [Right] O2 Sat by Pulse 97 97 98 Oximetry O2 Sat by Pulse Oximetry [ Bilateral Throughout] 11/14/21 11/14/21 11/14/21 04:41 04:44 04:49 Temperature Pulse Rate 68 83 75 Respiratory Rate Blood Pressure 89/51 Blood Pressure [Right] O2 Sat by Pulse 97 98 Oximetry O2 Sat by Pulse Oximetry [ Bilateral Throughout] 11/14/21 11/14/21 11/14/21 04:54 04:59 05:04 Temperature Pulse Rate 80 102 H 83 Respiratory Rate Blood Pressure Blood Pressure [Right] O2 Sat by Pulse 98 98 98 Oximetry O2 Sat by Pulse Oximetry [ Bilateral Throughout] 11/14/21 11/14/21 11/14/21 05:09 05:14 05:19 Temperature Pulse Rate 79 91 H 114 H Respiratory Rate Blood Pressure Blood Pressure [Right] O2 Sat by Pulse 99 98 98 Oximetry O2 Sat by Pulse Oximetry [ Bilateral Throughout] 11/14/21 11/14/21 11/14/21 05:24 05:29 05:34 Temperature Pulse Rate 85 78 80 Respiratory Rate Blood Pressure Blood Pressure [Right] O2 Sat by Pulse 98 98 97 Oximetry O2 Sat by Pulse Oximetry [ Bilateral Throughout] 11/14/21 11/14/21 11/14/21 05:39 05:41 05:44 Temperature Pulse Rate 74 89 78 Respiratory Rate Blood Pressure 92/50 Blood Pressure [Right] O2 Sat by Pulse 98 98 Oximetry O2 Sat by Pulse Oximetry [ Bilateral Throughout] 11/14/21 11/14/21 11/14/21 05:49 05:54 05:59 Temperature Pulse Rate 86 87 90 Respiratory Rate Blood Pressure Blood Pressure [Right] O2 Sat by Pulse 97 98 97 Oximetry O2 Sat by Pulse Oximetry [ Bilateral Throughout] 11/14/21 11/14/21 11/14/21 06:04 06:09 06:14 Temperature Pulse Rate 103 H 88 90 Respiratory Rate Blood Pressure Blood Pressure [Right] O2 Sat by Pulse 97 98 99 Oximetry O2 Sat by Pulse Oximetry [ Bilateral Throughout] 11/14/21 11/14/21 11/14/21 06:19 06:24 06:28 Temperature Pulse Rate 84 87 81 Respiratory Rate Blood Pressure 108/67 Blood Pressure [Right] O2 Sat by Pulse 99 99 Oximetry O2 Sat by Pulse Oximetry [ Bilateral Throughout] 11/14/21 11/14/21 11/14/21 06:29 06:34 06:39 Temperature Pulse Rate 98 H 79 78 Respiratory Rate Blood Pressure 107/65 Blood Pressure [Right] O2 Sat by Pulse 99 99 99 Oximetry O2 Sat by Pulse Oximetry [ Bilateral Throughout] 11/14/21 11/14/21 11/14/21 06:44 06:49 06:54 Temperature Pulse Rate 88 84 77 Respiratory Rate Blood Pressure Blood Pressure [Right] O2 Sat by Pulse 99 99 99 Oximetry O2 Sat by Pulse Oximetry [ Bilateral Throughout] 11/14/21 11/14/21 11/14/21 06:59 07:04 07:09 Temperature Pulse Rate 75 93 H 78 Respiratory Rate Blood Pressure Blood Pressure [Right] O2 Sat by Pulse 99 99 99 Oximetry O2 Sat by Pulse Oximetry [ Bilateral Throughout] 11/14/21 11/14/21 11/14/21 07:14 07:19 07:24 Temperature Pulse Rate 85 82 75 Respiratory Rate Blood Pressure Blood Pressure [Right] O2 Sat by Pulse 100 99 98 Oximetry O2 Sat by Pulse Oximetry [ Bilateral Throughout] 11/14/21 11/14/21 11/14/21 07:29 07:34 07:39 Temperature Pulse Rate 72 74 83 Respiratory Rate Blood Pressure Blood Pressure [Right] O2 Sat by Pulse 98 99 98 Oximetry O2 Sat by Pulse Oximetry [ Bilateral Throughout] 11/14/21 11/14/21 11/14/21 07:40 07:41 07:42 Temperature 97.5 F L Pulse Rate 77 83 96 H Respiratory 16 Rate Blood Pressure 115/63 112/69 Blood Pressure 112/69 [Right] O2 Sat by Pulse 99 Oximetry O2 Sat by Pulse Oximetry [ Bilateral Throughout] 11/14/21 11/14/21 11/14/21 07:44 07:49 07:53 Temperature Pulse Rate 79 83 Respiratory Rate Blood Pressure Blood Pressure [Right] O2 Sat by Pulse 99 100 Oximetry O2 Sat by Pulse 100 Oximetry [ Bilateral Throughout] 11/14/21 11/14/21 11/14/21 07:54 07:55 07:59 Temperature 98.7 F Pulse Rate 93 H 80 89 Respiratory 16 Rate Blood Pressure Blood Pressure 112/69 [Right] O2 Sat by Pulse 99 99 99 Oximetry O2 Sat by Pulse Oximetry [ Bilateral Throughout] 11/14/21 11/14/21 11/14/21 08:04 08:09 08:14 Temperature Pulse Rate 95 H 79 85 Respiratory Rate Blood Pressure Blood Pressure [Right] O2 Sat by Pulse 98 100 99 Oximetry O2 Sat by Pulse Oximetry [ Bilateral Throughout] 11/14/21 11/14/21 11/14/21 08:19 08:24 08:29 Temperature Pulse Rate 99 H 85 109 H Respiratory Rate Blood Pressure Blood Pressure [Right] O2 Sat by Pulse 99 99 98 Oximetry O2 Sat by Pulse Oximetry [ Bilateral Throughout] 11/14/21 11/14/21 11/14/21 08:34 08:39 08:44 Temperature Pulse Rate 87 85 83 Respiratory Rate Blood Pressure 126/68 Blood Pressure [Right] O2 Sat by Pulse 100 100 99 Oximetry O2 Sat by Pulse Oximetry [ Bilateral Throughout] 11/14/21 11/14/21 11/14/21 08:49 08:54 08:59 Temperature Pulse Rate 87 84 89 Respiratory Rate Blood Pressure Blood Pressure [Right] O2 Sat by Pulse 99 100 99 Oximetry O2 Sat by Pulse Oximetry [ Bilateral Throughout] - Labs Labs: Abnormal Labs 11/13/21 21:40 WBC 11.7 H Laboratory Results - last 24 hr 11/13/21 11/13/21 11/13/21 21:40 21:40 21:40 WBC 11.7 H RBC 3.97 Hgb 11.1 Hct 32.6 MCV 82 MCH 28 MCHC 34 RDW 13.8 Plt Count 292 Membranes Rupture TNR Syphilis IgG/IgM Ab Nonreactive Blood Type O POSITIVE Antibody Screen Negative
[2021-11-14] MEDS ORDERED: LIDOCAINE MPF (2%) 20 MG/1 ML VIAL 5 ML ONE ×2 (10:42→11:45)
[2021-11-14] MEDS ORDERED: MAGNESIUM HYDROXIDE (MOM) ORAL LIQD UDC PO PRN (12:31)
[2021-11-14] MEDS ORDERED: BENZOCAINE/MENTHOL 20/0.5% TOP SPRAY 56 GM TP PRN (12:31)
[2021-11-14] MEDS ORDERED: WITCH HAZEL/ GLYCERIN PAD TP PRN (12:31)
[2021-11-14] MEDS ORDERED: HYDROcodone/ACETAMINOPHEN 5-325 MG TAB PO PRN (12:31)
[2021-11-14] MEDS ORDERED: LANOLIN/ZINC/DIMETHICONE (LANSINOH) 7 GM TP PRN ×2 (12:31)
--- NOTE | 2021-11-14 12:31 | Procedure Note ---
OB Delivery Note - Delivery Date of Delivery: 11/14/21 Surgeon: TERRIE VARELA Estimated blood loss: other (800 cc) - Vaginal Delivery presentation: vertex Delivery position: OA Intrapartum events: other(please specify) () Delivery induction: none Delivery monitor: external FHT, external uterine Route of delivery: Delivery placenta: spontaneous Delivery cord: nuchal cord, 3 umbilical vessels Episiotomy: none Delivery laceration: 2nd degree, vaginal side wall Delivery repair: vicryl Anesthesia: local, epidural Delivery comments: Spontaneous vaginal delivery at 10:44 of liveborn female infant weighing 6 lb. 13 oz. over second degree perineal laceration with apgars of 9/9. Epidural anesthesia. was atraumatic. Nuchal cord and body cord, manually reduced. Baby placed skin to skin with mom immediately after delivery. Spontaneous cry and respirations. Baby suctioned with bulb syringe and dried with warm towels. 3 vessel cord double clamped and cut. Cord blood obtained. Spontaneous delivery of intact placenta and membranes at 10:47. Pitocin to IV fluids after delivery of placenta. Fundus firm and midline at 2 FB below umbilicus. EBL 800 cc (much of blood loss from laceration). Second degree perineal laceration and left vaginal wall laceration repaired with 2-0 and 3-0 vicryl in usual sterile fashion. Good hemostasis achieved with repair. No other lacerations noted. Vaginal sweep negative. Sponge count correct. Mother and baby stable in birthing room.
[2021-11-14 15:52] LABS: Hematocrit 29.9 % (30.3-42.9)
[2021-11-14] MEDS: IBUPROFEN 800 MG TAB PO SCH ×2 (18:27→19:33)
[2021-11-14] MEDS: DOCUSATE SODIUM 100 MG CAP PO SCH ×2 (19:51→23:53)
[2021-11-15] MEDS: IBUPROFEN 800 MG TAB PO SCH ×4 (00:08→21:27)
[2021-11-15 08:44] LABS: Hematocrit 28.1 % (30.3-42.9); Hemoglobin 8.9 gm/dl (10.1-14.3)
--- NOTE | 2021-11-15 09:11 | Progress Note ---
Assessment and Plan PPD#1 doing well 1. Routine care 2. Discharge pt home tomorrow per her request Subjective Date of service: 11/15/21 Principal diagnosis: PPD#1, successful Interval history: pt has no complaints but wants to go home tomorrow not today. pt is breast feeding. Vag bleed normal without clots, denies pelvic pain and voiding without difficulty. Objective - Constitutional Vitals: Vital Signs - 12hr 11/15/21 11/15/21 11/15/21 01:26 08:21 08:22 Temperature 98.1 F 98 F Pulse Rate 84 78 Respiratory 20 18 Rate Blood Pressure 102/59 95/54 O2 Sat by Pulse 98 98 95 Oximetry General appearance: Present: no acute distress - Neck Neck: normal ROM - Respiratory Respiratory effort: normal - Cardiovascular Rhythm: regular Extremities: No edema - Gastrointestinal General gastrointestinal: Present: soft, non-tender - Genitourinary Female genitourinary: other (fundus firm, non-tender 2cm below umbilicus, lochia small) - Integumentary Integumentary: warm, dry - Neurologic Neurologic: moves all extremities - Psychiatric Psychiatric: cooperative - Labs CBC & Chem 7: 11/15/21 08:17 Labs: Abnormal lab results 11/14/21 11/15/21 Range/Units 15:34 08:17 Hgb 10.0 L 8.9 L (10.1-14.3) gm/dl Hct 29.9 L 28.1 L (30.3-42.9) % Medications & Allergies - Medications Allergies/Adverse Reactions: Allergies No Known Allergies Allergy (Verified 09/28/18 05:09) Home Medications: Home Medications Medication Instructions Recorded Confirmed Last Taken Type Cholecalciferol (Vitamin D3) 1 tab PO 1XW 09/28/18 11/14/21 09/27/18 History [Vitamin D3] Ferrous Sulfate [Feosol 325 MG tab] 325 mg PO BID #60 tablet 09/28/18 11/14/21 Unknown Rx Ferrous Sulfate [Iron] 1 tab PO BID 09/28/18 11/14/21 09/27/18 History HYDROcodone/APAP 5-325 [[place] 1 each PO Q6HR PRN #30 tablet 09/28/18 11/14/21 Unknown Rx 5/325] Ibuprofen [Motrin] 800 mg PO Q8HR PRN #30 tablet 09/28/18 11/14/21 Unknown Rx Pnv No.95/Ferrous Fum/Folic AC 1 each PO DAILY #30 tablet 09/28/18 11/14/21 Unknown Rx [Prenavite Tablet] Active Medications: Generic Name Dose Route Start Last Admin Trade Name Freq PRN Reason Stop Dose Admin Hydrocodone Bitart/Acetaminophen 2 each 11/14/21 12:31 Hydrocodone/Acetaminophen 5-325 Mg Tab PO Q6H PRN Pain, Moderate (4-6) Benzocaine/Menthol 1 spray 11/14/21 12:31 11/14/21 18:34 Benzocaine/Menthol 20/0.5% [place] 56 Gm TP 1 spray PRN PRN Administration Episiotomy Pain Docusate Sodium 100 mg 11/14/21 13:00 11/14/21 23:53 Docusate Sodium 100 Mg Cap PO 100 mg BID CUONG Administration Ferrous Sulfate 325 mg 11/15/21 10:00 Ferrous Sulfate 325 Mg Tab PO QDAY CUONG Ibuprofen 800 mg 11/14/21 13:00 11/15/21 05:27 Ibuprofen 800 Mg Tab PO 800 mg Q6H CUONG Administration Magnesium Hydroxide 30 ml 11/14/21 12:31 Magnesium Hydroxide (Mom) Oral Liqd Udc PO HS PRN Constipation Multi-Ingredient Ointment 1 applic 11/14/21 12:31 11/14/21 18:27 Lanolin/Zinc/Dimethicone (Lansinoh) 7 Gm TP 1 applic PRN PRN Administration Sore Nipples [place]/Glycerin 1 each 11/14/21 12:31 11/14/21 18:34 [place]/ Glycerin Pad TP 1 each PRN PRN Administration Hemorrhoid/cleansing/soothing
[2021-11-15] MEDS ORDERED: FERROUS SULFATE 325 MG TAB PO SCH (10:00)
[2021-11-15] MEDS: DOCUSATE SODIUM 100 MG CAP PO SCH ×2 (11:28→21:27)
[2021-11-16] MEDS: IBUPROFEN 800 MG TAB PO SCH (05:05)
--- NOTE | 2021-11-16 09:20 | Progress Note ---
Assessment and Plan PPD#2 doing well 1. Discharge home and follow up in her clinic in 6wks. Subjective Date of service: 11/16/21 Principal diagnosis: PPD#2, successful Interval history: pt has no complaints and desires to go home. pt is breast feeding, vag bleed scant and pt denies dysuria or pelvic pain. Objective - Constitutional Vitals: Vital Signs - 12hr 11/15/21 11/15/21 11/16/21 21:27 23:52 05:05 Temperature 98.4 F Pulse Rate 81 Respiratory 18 20 18 Rate Blood Pressure 102/60 O2 Sat by Pulse 100 Oximetry General appearance: Present: no acute distress - Neck Neck: normal ROM - Respiratory Respiratory effort: normal - Breasts Breasts: deferred - Cardiovascular Rhythm: regular Extremities: No edema - Gastrointestinal General gastrointestinal: Present: soft, non-tender - Genitourinary Female genitourinary: other (Fundus firm, non-tender and 2cm below the u mbilicus, lochia scant) - Integumentary Integumentary: warm, dry - Neurologic Neurologic: moves all extremities - Psychiatric Psychiatric: cooperative - Labs CBC & Chem 7: 11/15/21 08:17 Medications & Allergies - Medications Allergies/Adverse Reactions: Allergies No Known Allergies Allergy (Verified 09/28/18 05:09) Home Medications: Home Medications Medication Instructions Recorded Confirmed Last Taken Type Cholecalciferol (Vitamin D3) 1 tab PO 1XW 09/28/18 11/14/21 09/27/18 History [Vitamin D3] Ferrous Sulfate [Feosol 325 MG tab] 325 mg PO BID #60 tablet 09/28/18 11/14/21 Unknown Rx Ferrous Sulfate [Iron] 1 tab PO BID 09/28/18 11/14/21 09/27/18 History HYDROcodone/APAP 5-325 [[place] 1 each PO Q6HR PRN #30 tablet 09/28/18 11/14/21 Unknown Rx 5/325] Ibuprofen [Motrin] 800 mg PO Q8HR PRN #30 tablet 09/28/18 11/14/21 Unknown Rx Pnv No.95/Ferrous Fum/Folic AC 1 each PO DAILY #30 tablet 09/28/18 11/14/21 Unknown Rx [Prenavite Tablet] Active Medications: Generic Name Dose Route Start Last Admin Trade Name Freq PRN Reason Stop Dose Admin Hydrocodone Bitart/Acetaminophen 2 each 11/14/21 12:31 11/15/21 15:33 Hydrocodone/Acetaminophen 5-325 Mg Tab PO 1 each Q6H PRN Administration Pain, Moderate (4-6) Benzocaine/Menthol 1 spray 11/14/21 12:31 11/14/21 18:34 Benzocaine/Menthol 20/0.5% [place] 56 Gm TP 1 spray PRN PRN Administration Episiotomy Pain Docusate Sodium 100 mg 11/14/21 13:00 11/15/21 21:27 Docusate Sodium 100 Mg Cap PO 100 mg BID CUONG Administration Ferrous Sulfate 325 mg 11/15/21 10:00 11/15/21 11:28 Ferrous Sulfate 325 Mg Tab PO 325 mg QDAY CUONG Administration Ibuprofen 800 mg 11/14/21 13:00 11/16/21 05:05 Ibuprofen 800 Mg Tab PO 800 mg Q6H CUONG Administration Magnesium Hydroxide 30 ml 11/14/21 12:31 Magnesium Hydroxide (Mom) Oral Liqd Udc PO HS PRN Constipation Multi-Ingredient Ointment 1 applic 11/14/21 12:31 11/14/21 18:27 Lanolin/Zinc/Dimethicone (Lansinoh) 7 Gm TP 1 applic PRN PRN Administration Sore Nipples [place]/Glycerin 1 each 11/14/21 12:31 11/14/21 18:34 [place]/ Glycerin Pad TP 1 each PRN PRN Administration Hemorrhoid/cleansing/soothing
--- NOTE | 2021-11-16 09:21 | Discharge Summary ---
Providers - Providers Date of Admission: 11/13/21 21:33 Date of discharge: 11/16/21 Attending physician: DESI CODY MD Primary care physician: DESI CODY MD Hospitalization Reason for admission: IUP at term Delivery: Episiotomy: none Laceration: 2nd degree Other procedures: none complications: none [place] baby: female Hospital course: Term pt with previous section desires TOLAC. Pt had successful without complications. uneventful. Condition at discharge: Good Disposition: 01 HOME / SELF CARE / HOMELESS Plan - Provider Discharge Summary Activity: no sex for 6 weeks Diet: routine Instructions: routine Additional instructions: [] Smoking cessation referral if applicable(refer to patient education folder for contact #) [] Refer to [facility] Booklet Call your doctor immediately for: * Fever > 100.5 * Heavy vaginal bleeding ( >1 pad per hour) * Severe persistent headache * Shortness of breath * Reddened, hot, painful area to leg or breast * Drainage or odor from incision. * Keep incision clean and dry at all times and follow doctor's instructions regarding bathing/showering - Follow up plan Follow up: DESI CODY MD [Primary Care Provider] - 6 Weeks
[2021-11-16 13:17] VITALS: BP 123/77
== END 2021-11-16 13:05 | disposition home or self-care (01) | DRG 807 ==
LOC: TRG 20:22 → APU 20:24 → LD 21:33 → TRG 21:33 → LD 22:01 → OB 11-14 14:16
PROVIDERS: ADMIT Obstetrics & Gynecology; ATTEND Obstetrics & Gynecology
PROC: 10E0XZZ Delivery of Products of Conception, External Approach (ICD-10-PCS; principal; 2021-11-14)
PROC: 0KQM0ZZ Repair Perineum Muscle, Open Approach (ICD-10-PCS; 2021-11-14)
PROC: 3E0R3BZ Introduction of Anesthetic Agent into Spinal Canal, Percutaneous Approach (ICD-10-PCS; 2021-11-14)
PROC: 00HU33Z Insertion of Infusion Device into Spinal Canal, Percutaneous Approach (ICD-10-PCS; 2021-11-14)
PROC: 3E033VJ Introduction of Other Hormone into Peripheral Vein, Percutaneous Approach (ICD-10-PCS; 2021-11-14)
DX: O34.211 Maternal care for low transverse scar from previous cesarean delivery (principal); Z37.0 Single live birth; Z3A.39 39 weeks gestation of pregnancy; Z20.822 Contact with and (suspected) exposure to COVID-19; O76 Abnormality in fetal heart rate and rhythm complicating labor and delivery; O69.81X0 Labor and delivery complicated by cord around neck, without compression, not applicable or unspecified; O70.1 Second degree perineal laceration during delivery
CPT/HCPCS: 36415; 59025; 85014; 85018; 85027; 86592; 86850; 86900; 86901; 88307; 99211; G0378; J3490; G0463; J0690; J2590; J3010; J7120; U0003